=== PATIENT | male | born 1955 | race Hispanic/Latino ===

== ENCOUNTER 2021-05-22 12:44 | Emergency (ER) | payer MEDICARE ==
[2021-05-22 15:35] VITALS: BP 139/88
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
== END 2021-05-22 18:49 | disposition home or self-care (01) ==
LOC: ED 12:44
DX: S16.1XXA Strain of muscle, fascia and tendon at neck level, initial encounter (principal); S39.012A Strain of muscle, fascia and tendon of lower back, initial encounter; I10 Essential (primary) hypertension; Z87.891 Personal history of nicotine dependence; V47.5XXA Car driver injured in collision with fixed or stationary object in traffic accident, initial encounter; Y93.89 Activity, other specified; Y92.89 Other specified places as the place of occurrence of the external cause; Y99.8 Other external cause status
CPT/HCPCS: 99282

== ENCOUNTER 2021-12-19 13:13 | Emergency (ER) | payer OTHER, MEDICARE ==
[2021-12-19 13:57] VITALS: BP 130/79
[2021-12-19] MEDS ORDERED: oxyCODONE /ACETAMINOPHEN 5-325MG TAB PO ONE (20:57)
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
== END 2021-12-19 23:22 | disposition home or self-care (01) ==
LOC: ED 13:13
DX: M79.7 Fibromyalgia (principal); M19.90 Unspecified osteoarthritis, unspecified site; I10 Essential (primary) hypertension; Z87.891 Personal history of nicotine dependence; Z91.09 Other allergy status, other than to drugs and biological substances; V89.2XXA Person injured in unspecified motor-vehicle accident, traffic, initial encounter; Y93.89 Activity, other specified; Y92.89 Other specified places as the place of occurrence of the external cause; Y99.8 Other external cause status
CPT/HCPCS: 70450; 71045; 72125; 99284